=== PATIENT | male | born 1955 | race Caucasian/White ===

== ENCOUNTER 2022-07-18 18:55 | Emergency (ER) | payer MEDICARE, OTHER ==
[~2022-07-18] VITALS: Ht 175.3 cm; Wt 81.6 kg
--- NOTE | 2022-07-18 18:56 | NUR ---
PT OFFLOADED TO BED 03. THOMAS GARCIA AT BEDSIDE.
[2022-07-18 19:01] VITALS: BP 154/62
--- NOTE | 2022-07-18 19:06 | NUR ---
PT TAKEN TO CT VIA JULIO C. MONSE RN AT BEDSIDE.
--- NOTE | 2022-07-18 19:22 | NUR ---
LAB AT BEDSIDE. XIOMY COLLECTED AND GIVEN TO SANTY FROM LAB.
--- NOTE | 2022-07-18 19:23 | NUR ---
Pt report given to SUMANTH VERONICA. Transfer of care at this time.
[2022-07-18] MEDS ORDERED: ATEN50TA8 PO (19:32)
[2022-07-18] MEDS ORDERED: LOSA100T1 PO (19:32)
[2022-07-18] MEDS ORDERED: OMEP20EC11 PO (19:32)
[2022-07-18] MEDS ORDERED: SYN.05 PO (19:32)
[2022-07-18] MEDS ORDERED: METF-1139 PO (19:32)
[2022-07-18] MEDS ORDERED: FURO-570 PO (19:32)
[2022-07-18] MEDS ORDERED: INSU100S5 SUBQ (19:50)
[2022-07-18] MEDS ORDERED: ROSU20TA1 PO (19:50)
[2022-07-18 19:54] LABS: BASOPHILS % (AUTO) 0.3 % (0.0-2.0); EOSINOPHILS # (AUTO) 0.3 K/uL (0-0.4); EOSINOPHILS % (AUTO) 2.2 % (0.0-4.0); HEMATOCRIT 37.5 % (36-52); HEMOGLOBIN 12.4 g/dL (12.0-18.0); LYMPHOCYTES # (AUTO) 2.8 K/uL (2.0-11.5); LYMPHOCYTES % (AUTO) 22.1 % (20.5-51.1); MEAN CORPUSCULAR HEMOGLOBIN 27 pg (27-31); MEAN CORPUSCULAR HGB CONC 33 g/dL (33-37); MEAN CORPUSCULAR VOLUME 82.8 fL (80-94); MONOCYTES # (AUTO) 0.8 K/uL (0.8-1.0); MONOCYTES % (AUTO) 5.9 % (1.7-9.3); NEUTROPHILS % (AUTO) 69.5 % (42.2-75.2); PLATELET COUNT (AUTO) 396 K/uL (140-450); RED BLOOD CELL COUNT(AUTO) 4.53 MIL/uL (4.20-6.10); RED CELL DISTRIBUTION WIDTH 14.4 % (11.6-13.7); WHITE BLOOD COUNT (AUTO) 12.9 K/uL (4.8-10.8)
--- NOTE | 2022-07-18 20:01 | NUR ---
Unable to get UA with straight cath. THOMAS YOUSSEF made aware.
[2022-07-18 20:42] LABS: ALBUMIN 2.4 g/dL (3.4-5.0); ANION GAP 13.1 (8-16); ASPARTATE AMINOTRANSFERASE 25 U/L (15-37); CARBON DIOXIDE 27.8 mmol/L (21-32); CHLORIDE 101 mmol/L (98-107); CREATININE 1.4 mg/dL (0.6-1.3); GFR ARICAN-AMERICAN 65 mL/min (>90); GLUCOSE 124 mg/dL (74-106); POTASSIUM 4.9 mmol/L (3.5-5.1); SODIUM SERUM 137 mmol/L (136-145); TOTAL BILIRUBIN 0.4 mg/dL (0.0-1.0); UREA NITROGEN, BLOOD 20 mg/dL (7-18)
--- NOTE | 2022-07-18 20:50 | NUR ---
Pt becoming agitated removing/pulling at lines.
[2022-07-18 22:16] LABS: ACETAMINOPHEN < 0.5 ug/ml (10-30); SALICYLATE < 2.8 mg/dL (2.8-20.0)
[2022-07-18] MEDS ORDERED: VANCOMYCIN 1,000 MG in DEXTROSE 5% 250 ML IV ONE (22:25)
[2022-07-18] MEDS ORDERED: CEFEPIME 1,000 MG in DEXTROSE 5% 50 ML IV ONE (22:25)
--- NOTE | 2022-07-18 22:30 | NUR ---
Unable to start abx d/t pt being agitated pulling at lines.
--- NOTE | 2022-07-18 22:50 | NUR ---
Pt's brother Joshua notified.
--- NOTE | 2022-07-18 22:50 | NUR ---
Report given to Peggy Dickerson. EMS arrived to transport to [facility].
[2022-07-18 22:52] VITALS: BP 120/44
== END 2022-07-18 22:52 | disposition short-term general hospital (02) ==
LOC: MED 18:55
DX: R13.10 Dysphagia, unspecified (principal); R77.8 Other specified abnormalities of plasma proteins; E87.20 Acidosis, unspecified; D72.829 Elevated white blood cell count, unspecified; L97.829 Non-pressure chronic ulcer of other part of left lower leg with unspecified severity; L08.9 Local infection of the skin and subcutaneous tissue, unspecified; R41.82 Altered mental status, unspecified; M79.605 Pain in left leg; E11.9 Type 2 diabetes mellitus without complications; I10 Essential (primary) hypertension; E78.5 Hyperlipidemia, unspecified; Z88.0 Allergy status to penicillin; Z88.5 Allergy status to narcotic agent; Z88.6 Allergy status to analgesic agent; Z88.8 Allergy status to other drugs, medicaments and biological substances; Z79.4 Long term (current) use of insulin; Z79.899 Other long term (current) drug therapy
CPT/HCPCS: 36415; 70450; 71045; 80053; 82140; 83605; 84484; 85025; 87040; 87426; 93005; 99285; G0480; Q0092